=== PATIENT | male | born 1945 | race Caucasian/White ===

== ENCOUNTER → 2016-09-25 | Outpatient (CLI) | payer MEDICARE, BC | END | disposition home or self-care (01) | LOC: MW.CHPS 08:00 | PROVIDERS: ATTEND Plastic Surgery | DX: H02.822 Cysts of right lower eyelid (principal); L57.0 Actinic keratosis; Z85.828 Personal history of other malignant neoplasm of skin | CPT/HCPCS: 11440; 88305; 99202 ==

== ENCOUNTER → 2016-11-29 | Outpatient (CLI) | payer MEDICARE, BC | LOC: MW.CHUR 16:54 | PROVIDERS: ATTEND Urology | DX: N40.0 Benign prostatic hyperplasia without lower urinary tract symptoms (principal); R35.1 Nocturia; Z98.890 Other specified postprocedural states; N48.0 Leukoplakia of penis | CPT/HCPCS: 84153; G0463 ==